=== PATIENT | female | born 1985 | race Caucasian/White ===

== ENCOUNTER 2021-02-06 14:34 | Emergency (ER) | payer BC, SELFPAY ==
[2021-02-06 14:43] VITALS: BP 131/72; PULSE 99; RESP 20; TEMP 38.3; O2SAT 100
--- NOTE | 2021-02-06 14:57 | ED.FEMALEGU ---
HPI - Female Genitourinary General Chief complaint: Urogenital-Female Stated complaint: POS UTI Time Seen by Provider: 02/06/21 14:52 Source: patient and RN notes reviewed Mode of arrival: ambulatory Limitations: no limitations History of Present Illness HPI Narrative: Patient presents today complaining of a 2-day history of dysuria, chills, low back pain. Denies fever, abdominal pain, nausea or vomiting, hematuria, frequency, or urgency. No history of frequent UTIs. She has tried no [id number] medicine for symptoms prior to arrival. Patient is an RN. No recent antibiotic use. MD elicited complaint: dysuria Related Data Allergies Allergy/AdvReac Type Severity Reaction Status Date / Time Sulfa (Sulfonamide Allergy Unknown Unknown Verified 02/06/21 14:48 Antibiotics) Review of Systems Review of Systems: Narrative: CONSTITUTIONAL: Denies body aches, fever, or sweats. + Chills EYES: Denies visual changes, redness, or discharge. ENT: Denies rhinorrhea, congestion, sore throat, or otalgia. CARDIOVASCULAR: Denies chest pain, palpitations, or edema. RESPIRATORY: Denies cough or dyspnea. GASTROINTESTINAL: Denies abdominal pain, nausea, vomiting, or diarrhea. GENITOURINARY: Denies hematuria. + Dysuria SKIN: Denies rash, itching, or wounds. MUSCULOSKELETAL: Denies joint pain, or myalgia. + Low back pain NEUROLOGIC: Denies headache, numbness, tingling, or weakness. PSYCH: Denies depression or anxiety. PMFSH Social History Social History Smoking status: Never smoker Alcohol intake: never Comments At time of signature, I have reviewed and agree with nursing past medical, surgical, social and family history unless otherwise noted. Please see nursing chart for further information. There is no relevant family history pertinent to the presenting complaint Exam Narrative: Exam Narrative: GENERAL: Well-appearing, well-nourished, and in no acute distress. HEAD: Normocephalic, atraumatic. EYES: EOMI. No redness or drainage. Conjunctivae normal. ENT: Mucous membranes pink and moist. NECK: Normal AROM. CHEST: No respiratory distress. Clear to auscultation. HEART: Regular rate and rhythm. No murmur appreciated. Normal peripheral pulses. ABDOMEN: Soft, nontender, nondistended, normal active bowel sounds. -CVAT MUSCULOSKELETAL: No bony tenderness of the spine. EXTREMITIES: Normal range of motion. No edema. SKIN: Warm, dry, no rash. Capillary refill normal. Normal skin turgor. NEURO: No focal deficits. Alert and oriented x3. Gait steady. PSYCH: Normal affect. No signs of depression or anxiety. Course Vital Signs Vital signs: Vital Signs Temperature 100.9 F H 02/06/21 14:43 Pulse Rate 99 02/06/21 14:43 Respiratory Rate 20 02/06/21 14:43 Blood Pressure 131/72 02/06/21 14:43 Pulse Oximetry 100 02/06/21 14:43 Temperature 100.9 F H 02/06/21 14:43 Pulse Rate 99 02/06/21 14:43 Respiratory Rate 20 02/06/21 14:43 Blood Pressure 131/72 02/06/21 14:43 Pulse Oximetry 100 02/06/21 14:43 Reviewed. Pt has been instructed to follow up with her PCP regarding her elevated blood pressure today. MDM - Female Genitourinary Differential Diagnosis Differential diagnosis: Likely urinary tract infection, cystitis and other (Interstitial cystitis, pyelonephritis) Lab Data Attestation: I reviewed the patient's lab results. Labs: Urine Glucose Negative Reference Range: Negative Urine Bilirubin Negative Reference Range: Negative Urine Ketone Negative Reference Range: Negative Urine Specific [place] 1.030 Reference Range:1.001-1.035 Urine Blood
== END 2021-02-06 15:10 | disposition home or self-care (01) ==
PROVIDERS: Emergency Provider Nurse Practitioner
DX: N30.01 Acute cystitis with hematuria (principal)
CPT/HCPCS: 81003; 87077; 87086; 87088; 87186; 99203; G0463

== ENCOUNTER 2021-07-17 12:07 | Emergency (ER) | payer BC, SELFPAY ==
--- NOTE | 2021-07-17 12:10 | ED.FEMALEGU ---
HPI - Female Genitourinary General Chief complaint: Urogenital-Female Stated complaint: UTI SYMPTOMS Time Seen by Provider: 07/17/21 12:10 Source: patient and RN notes reviewed History of Present Illness HPI Narrative: Patient is a 36-year-old female who presents the urgent care with complaints of a possible UTI. States that she had a urinary tract infection in January. Patient was originally treated with Macrobid which was then changed to Augmentin based on culture results. Patient reports of low back pain and chills. States that she took Tylenol at 4 AM this morning. States that her last urinary tract infections had like symptoms without any urinary complaints. Denies of any urinary frequency, urgency, nausea, vomiting. Denies of any blood in the urine. No other acute complaints. No distress noted. Patient aware of the plan of care. Some parts of this dictation were generated by voice recognition software and may contain typographical and/or grammatical inaccuracies. Related Data Allergies Allergy/AdvReac Type Severity Reaction Status Date / Time Sulfa (Sulfonamide Allergy Unknown Unknown Verified 02/06/21 14:48 Antibiotics) Review of Systems Review of Systems: CONSTITUTIONAL: Denies fever, chills, or sweats. EYES: Denies visual changes, redness, or discharge. ENT: Denies rhinorrhea, congestion, sore throat, or otalgia. CARDIOVASCULAR: Denies chest pain, palpitations, or edema. RESPIRATORY: Denies cough or dyspnea. GASTROINTESTINAL: Denies abdominal pain, nausea, vomiting, or diarrhea. GENITOURINARY: Denies dysuria or hematuria. SKIN: Denies rash or itching. MUSCULOSKELETAL: Denies back pain, joint pain, or myalgia. NEUROLOGIC: Denies headache, numbness, or weakness. All other systems reviewed are negative, except as documented in HPI. PMFSH Social History Social History Smoking status: Never smoker Alcohol intake: never Comments At the time of my signature, I reviewed and agree with the nursing past medical, surgical, social, and family history. There is no relevant family history pertinent to the patient complaint. Exam Narrative: GENERAL: This is a well-nourished, well-developed patient, in no apparent distress. HEAD: normocephalic, atraumatic. EYES: PERRL. Sclera clear/white. Vision is grossly intact. EARS: External ears normal NOSE: External nose normal with no obvious nasal discharge, nares without redness, no rhinorrhea. THROAT: Mucous membranes moist NECK: Neck supple, non-tender without lymphadenopathy, masses or thyromegaly. CARDIOVASCULAR: Regular rate and rhythm without murmurs, gallops, or rubs. RESPIRATORY: Clear to auscultation. Breath sounds equal bilaterally. No wheezes, rales, or rhonchi. GASTROINTESTINAL: Abdomen soft, non-tender, nondistended. Bowel sounds are active. NEURO: awake, alert, and oriented to person, place and time. There were no obvious focal neurologic abnormalities. EXTREMITIES: No clubbing, cyanosis, or edema. BACK: Negative bilateral CVA tenderness Course Vital Signs Vital signs: Vital Signs Temperature 102.5 F H 07/17/21 12:14 Pulse Rate 131 H 07/17/21 12:14 Respiratory Rate 16 07/17/21 12:14 Blood Pressure 129/83 07/17/21 12:14 Pulse Oximetry 99 07/17/21 12:14 Temperature 102.5 F H 07/17/21 12:14 Pulse Rate 131 H 07/17/21 12:14 Respiratory Rate 16 07/17/21 12:14 Blood Pressure 129/83 07/17/21 12:14 Pulse Oximetry 99 07/17/21 12:14 Reviewed MDM - Female Genitourinary MDM Narrative Medical decision making narrative: Reviewed lab results with the patient. She is aware that urine analysis does show slight bacteria in the urine. Advised the patient to complete oral antibiotic regimen as prescribed. Be sure to eat and drink with the medication. Increase your water intake and avoid sugary and caffeinated drinks. Continue Tylenol/ibuprofen as needed for fever/chills. If y
[2021-07-17 12:14] VITALS: BP 129/83; PULSE 131; RESP 16; TEMP 39.2; O2SAT 99
== END 2021-07-17 12:26 | disposition home or self-care (01) ==
PROVIDERS: Emergency Provider Nurse Practitioner Family
DX: N39.0 Urinary tract infection, site not specified (principal)
CPT/HCPCS: 81003; 87077; 87086; 87088; 87186; 99213; G0463

== ENCOUNTER 2025-04-07 10:00 | Emergency (ER) | payer BC, SELFPAY ==
--- NOTE | ~2025-04-07 | XR_ITS ---
XR foot LT min 3V 04/07/2025 10:48 Indication: Left foot pain Procedure: 4 views left foot Comparison: No prior studies for comparison. Findings: There are transverse fractures bases of the second, third and fourth metatarsals. The fourt h metatarsal fractures comminuted in laterally displaced. Lisfranc joint intact. Impression: 1: Transverse extra-articular fractures of the proximal aspect of the second, third and fourth metata rsals with lateral displacement of the fourth metatarsal fracture. Reviewed, dictated and finalized at location A. Impression: 1: Transverse extra-articular fractures of the proximal aspect of the second, t hird and fourth metatarsals with lateral displacement of the fourth metatarsal fracture.
--- NOTE | 2025-04-07 10:05 | ED.LOWEXIN ---
HPI - Extremity Injury (Lower) General Chief Complaint: Extremity Injury, Lower Stated Complaint: Left Foot Injury Time Seen by Provider: 04/07/25 10:15 Source: patient Mode of arrival: ambulatory Limitations: no limitations History of Present Illness HPI Narrative: Dorita is a 39-year-old female patient presenting to the clinic today with complaints of a left foot injury. She reports she was jumping on a trampoline last night and inverted her foot in all her weight came down on top of her foot. Foot is very swollen. She took Motrin last night for pain and swelling Related Data Allergies Allergy/AdvReac Type Severity Reaction Status Date / Time Sulfa (Sulfonamide Allergy Unknown Unknown Verified 04/07/25 10:10 Antibiotics) Review of Systems Review of Systems: Pertinent positives per HPI. Patient denies any fever, chills, rash, headache, visual changes, dizziness, cough, runny nose, sore throat, shortness of breath, chest pain, palpitations, nausea, vomiting, diarrhea, constipation, abdominal pain, or any urinary issues. PMFSH Social History Social History Smoking status: Never smoker Alcohol intake: never Comments At the time of my signature, I reviewed and agree with the nursing past medical, surgical, social, and family history. There is no relevant family history pertinent to the patient complaint. Exam Narrative: General: Well-developed, well nourished, in no apparent distress Head: Normocephalic, atraumatic. Cardio: Regular rate and rhythm, s1 and s2 normal, no murmur appreciated. Resp: Clear to auscultation bilaterally, no rhonchi, rales, wheezing or rubs. Musculoskeletal: No deformity, diffuse swelling in the left foot, tender to palpation over the dorsal aspect of the left foot, pain with dorsal flexion and plantar flexion against resistance, limited range of motion due to pain, left pedal pulse intact and strong, no cyanosis, limping gait and station Course Course Emergency Course: Portions of this record may have been created with voice recognition software. Level of Care: Express Care Visit Vital Signs Vital signs: Vital Signs Temperature 36.8 C 04/07/25 10:11 Pulse Rate 92 04/07/25 10:11 Respiratory Rate 18 04/07/25 10:11 Blood Pressure 119/84 04/07/25 10:11 Pulse Oximetry 100 04/07/25 10:11 Oxygen Delivery Room Air 04/07/25 10:11 Temperature 36.8 C 04/07/25 10:11 Pulse Rate 92 04/07/25 10:11 Respiratory Rate 18 04/07/25 10:11 Blood Pressure 119/84 04/07/25 10:11 Pulse Oximetry 100 04/07/25 10:11 Oxygen Delivery Room Air 04/07/25 10:11 Vital signs reviewed MDM - Extremity Injury (Lower) MDM Narrative Medical decision making narrative: At the time of visit patient is sitting up in the chair. Patient appears to be nontoxic. Has diffuse swelling to the left foot with pain to the dorsal aspect of the foot. We do not have imaging in the clinic today. Patient would like to go to [facility] for imaging. Left foot x-ray was ordered. Contacted Rebekah LORENZO at [facility] and report was given for continuity of care. Patient will have her drive her to the [facility]. Differential Diagnosis Differential diagnosis: Likely other (Foot fracture, foot sprain, tendon tear/rupture time, contusion, soft tissue injury, compartment syndrome) Discharge Plan Discharge Clinical Impression: Metatarsal bone fracture Qualifiers: Encounter type: initial encounter Metatarsal bone: unspecified metatarsal Fracture type: closed Fracture alignment: displaced Laterality: left Qualified Code(s): S92.302A - Fracture of unspecified metatarsal bone(s), left foot, initial encounter for closed fracture Patient Disposition: Home Condition: Stable Instructions: Antibiotic Form Patient Language: Armenian Prescriptions: No Action doxycycline monohydrate 100 mg capsule 100 mg PO BID Qty: 20 0RF Follow-up/Referrals: UNKNOWN,DOCTOR [Primary Care Provider] - [facility] Nursing Documentation ED NIHSS nursing documentation: reviewed/agree
[2025-04-07 10:11] VITALS: BP 119/84; PULSE 92; RESP 18; TEMP 36.8; O2SAT 100
--- NOTE | 2025-04-07 12:18 | PC.NURSE ---
1040- pt arrived from [facility] for Xray. Reports received from MAURA Price.
== END 2025-04-07 12:27 | disposition home or self-care (01) ==
PROVIDERS: Emergency Provider Registered Nurse
DX: S92.325A Nondisplaced fracture of second metatarsal bone, left foot, initial encounter for closed fracture (principal); S92.335A Nondisplaced fracture of third metatarsal bone, left foot, initial encounter for closed fracture; S92.342A Displaced fracture of fourth metatarsal bone, left foot, initial encounter for closed fracture; X50.9XXA Other and unspecified overexertion or strenuous movements or postures, initial encounter; Y93.44 Activity, trampolining
CPT/HCPCS: 29515; 73630; 99214; G0463